=== PATIENT | female | born 1980 | race Two or more races ===

== ENCOUNTER 2018-04-29 18:58 | Inpatient (IN) | payer OTHER ==
[2018-04-29] MEDS ORDERED: ONDANSETRON 4 MG INJ IV (23:30)
[2018-04-29] MEDS ORDERED: ACETAMINOPHEN 325 MG TAB PO (23:30)
[2018-04-29 23:46] LABS: ADD UMIC YES; UR ASCORBIC ACID NEGATIVE (NEGATIVE); UR BACTERIA FEW /HPF (NONE SEEN); UR BILIRUBIN (Dip) NEGATIVE (NEGATIVE); UR BLOOD (Dip) NEGATIVE (NEGATIVE); UR CLARITY SLIGHTLY CLOUDY (CLEAR); UR COLOR YELLOW (YELLOW); UR GLUCOSE (Dip) NEGATIVE (NEGATIVE); UR KETONES (Dip) NEGATIVE (NEGATIVE); UR LEUKOCYTE ESTERASE (Dip) TRACE Leu/ul (NEGATIVE); UR NITRITE (Dip) NEGATIVE (NEGATIVE); UR RBC 2 /HPF (0-5); UR SPECIFIC GRAVITY (Dip) 1.011 (1.003-1.030); UR SQUAMOUS EPITHELIAL CELL FEW /HPF (FEW); UR TOTAL PROTEIN (Dip) NEGATIVE (NEGATIVE); UR UROBILINOGEN (Dip) NEGATIVE (NEGATIVE); UR WBC 0 /HPF (0-5)
[2018-04-30] MEDS: LACTATED RINGER'S 1,000 ML IV ×3 (00:34→22:35)
[2018-04-30] MEDS: MAGNESIUM SULFATE 4 GM/100 ML 100 ML IV (00:50)
[2018-04-30] MEDS: BETAMET NA PHOS/AC(6 MG/ML) 5ML INJ IM (00:51)
[2018-04-30 00:59] LABS: ADD MAN DIFF? NO
[2018-04-30 01:02] LABS: BASOPHILS % 0.6 % (0.0-2.0); EOSINOPHILS # 0.1 10^3/ul (0.0-0.5); EOSINOPHILS % 1.6 % (0.0-7.0); HEMATOCRIT 35.8 % (37.0-47.0); LYMPHOCYTES # 1.5 10^3/ul (0.8-2.9); LYMPHOCYTES % 31.1 % (15.0-51.0); MEAN CORPUSCULAR HGB CONC 33.5 g/dl (32.0-37.0); MEAN CORPUSCULAR VOLUME 92.5 fl (82.0-101.0); MEAN PLATELET VOLUME 11.8 fl (7.4-10.4); MONOCYTE # 0.4 10^3/ul (0.3-0.9); MONOCYTES % 7.5 % (0.0-11.0); NEUTROPHIL # 2.9 10^3/ul (1.6-7.5); NEUTROPHILS % 58.8 % (39.0-77.0); PLATELET COUNT 119 10^3/UL (140-415); RED BLOOD COUNT 3.87 10^6/ul (4.20-5.40); RED CELL DISTRIBUTION WIDTH 13.3 % (11.5-14.5)
[2018-04-30 01:18] LABS: ALANINE AMINOTRANSFERASE 49 IU/L (13-69); ALBUMIN 2.8 g/dl (3.3-4.9); ALKALINE PHOSPHATASE 393 IU/L (42-121); ANION GAP 10 (8-16); ASPARTATE AMINO TRANSFERASE 51 IU/L (15-46); BILIRUBIN,INDIRECT 0.2 mg/dl (0-1.1); BILIRUBIN,TOTAL 0.2 mg/dl (0.2-1.3); BLOOD UREA NITROGEN 12 mg/dl (7-20); CALCIUM 8.6 mg/dl (8.4-10.2); CARBON DIOXIDE 20 mmol/L (21-31); CHLORIDE 110 mmol/L (97-110); CREATININE 0.56 mg/dl (0.44-1.00); GLUCOSE 67 mg/dl (70-220); POTASSIUM 3.7 mmol/L (3.5-5.1); SODIUM 136 mmol/L (135-144); TOTAL PROTEIN 6.3 g/dl (6.1-8.1)
[2018-04-30] MEDS: MAGNESIUM SULFATE 20 GM/500 ML 500 ML IV ×2 (01:20→11:40)
[2018-04-30 01:24] LABS: PROTIME 11.1 Sec (11.9-14.9); PT RATIO 0.9
[2018-04-30 01:25] LABS: PARTIAL THROMBOPLASTIN TIME 28.5 Sec (25.0-35.0)
[2018-04-30] MEDS: AMPICILLIN 2 GM/NS (PMX) 100 ML IVPB (02:35)
[2018-04-30] MEDS: AMPICILLIN 1 GM/NS (PMX) 50 ML IVPB ×5 (06:51→23:14)
[2018-04-30 07:05] LABS: ADD MAN DIFF? NO
[2018-04-30 07:15] LABS: WHITE BLOOD COUNT 4.1 10^3/ul (4.8-10.8)
[2018-04-30 07:15] LABS: BASOPHILS % 0.2 % (0.0-2.0); EOSINOPHILS % 0.2 % (0.0-7.0); HEMOGLOBIN 11.8 g/dl (12.0-16.0); LYMPHOCYTES % 23.1 % (15.0-51.0); MEAN CORPUSCULAR HEMOGLOBIN 29.9 pg (29.0-33.0); MEAN CORPUSCULAR HGB CONC 32.8 g/dl (32.0-37.0); MEAN CORPUSCULAR VOLUME 91.4 fl (82.0-101.0); MONOCYTE # 0.1 10^3/ul (0.3-0.9); MONOCYTES % 2.9 % (0.0-11.0); NEUTROPHILS % 72.6 % (39.0-77.0); PLATELET COUNT 124 10^3/UL (140-415); RED BLOOD COUNT 3.94 10^6/ul (4.20-5.40); RED CELL DISTRIBUTION WIDTH 13.3 % (11.5-14.5)
[2018-04-30 07:59] LABS: ALANINE AMINOTRANSFERASE 46 IU/L (13-69); ALBUMIN 2.8 g/dl (3.3-4.9); ALKALINE PHOSPHATASE 436 IU/L (42-121); ASPARTATE AMINO TRANSFERASE 52 IU/L (15-46); BILIRUBIN,INDIRECT 0.2 mg/dl (0-1.1); BILIRUBIN,TOTAL 0.2 mg/dl (0.2-1.3); BLOOD UREA NITROGEN 10 mg/dl (7-20); CALCIUM 7.6 mg/dl (8.4-10.2); CARBON DIOXIDE 20 mmol/L (21-31); CREATININE 0.62 mg/dl (0.44-1.00); GLUCOSE 125 mg/dl (70-220); TOTAL PROTEIN 6.3 g/dl (6.1-8.1)
[2018-04-30 08:10] LABS: ANION GAP 11 (8-16); CHLORIDE 109 mmol/L (97-110); POTASSIUM 3.9 mmol/L (3.5-5.1); SODIUM 136 mmol/L (135-144)
[2018-04-30 08:11] LABS: MAGNESIUM 6.3 mg/dl (1.7-2.5)
[2018-04-30] MEDS: PRENATAL VITAMIN PO (09:41)
[2018-04-30] MEDS: FERROUS SULFATE (EC) 325 MG TAB PO (09:41)
[2018-04-30 12:48] LABS: MAGNESIUM 7.4 mg/dl (1.7-2.5)
[2018-04-30 18:37] LABS: RAPID PLASMA REAGIN NONREACTIVE (NR)
[2018-04-30 18:46] LABS: MAGNESIUM 6.2 mg/dl (1.7-2.5)
[2018-04-30 23:53] LABS: MAGNESIUM 5.9 mg/dl (1.7-2.5)
[2018-05-01 00:19] LABS: HEPATITIS B SURFACE ANTIGEN NEGATIVE (NEGATIVE)
[2018-05-01] MEDS: BETAMET NA PHOS/AC(6 MG/ML) 5ML INJ IM (01:39)
[2018-05-01] MEDS: AMPICILLIN 1 GM/NS (PMX) 50 ML IVPB ×3 (02:39→10:27)
[2018-05-01] MEDS: MAGNESIUM SULFATE 20 GM/500 ML 500 ML IV (02:41)
[2018-05-01 07:36] LABS: MAGNESIUM 7.4 mg/dl (1.7-2.5)
[2018-05-01] MEDS: FERROUS SULFATE (EC) 325 MG TAB PO (10:26)
[2018-05-01] MEDS: PRENATAL VITAMIN PO (10:26)
[2018-05-01 12:53] LABS: MAGNESIUM 5.9 mg/dl (1.7-2.5)
[2018-05-02] MEDS: LACTATED RINGER'S 1,000 ML IV ×3 (06:22→23:16)
[2018-05-02] MEDS: PRENATAL VITAMIN PO (08:56)
[2018-05-02] MEDS: FERROUS SULFATE (EC) 325 MG TAB PO (08:56)
[2018-05-02 20:56] LABS: ADD MAN DIFF? NO
[2018-05-02 20:59] LABS: ABNORMAL IP MESSAGE 1; BASOPHILS % 0.3 % (0.0-2.0); EOSINOPHILS % 0.3 % (0.0-7.0); HEMATOCRIT 32.2 % (37.0-47.0); HEMOGLOBIN 10.2 g/dl (12.0-16.0); LYMPHOCYTES # 1.3 10^3/ul (0.8-2.9); LYMPHOCYTES % 17.6 % (15.0-51.0); MEAN CORPUSCULAR HEMOGLOBIN 30.3 pg (29.0-33.0); MEAN CORPUSCULAR HGB CONC 31.7 g/dl (32.0-37.0); MEAN CORPUSCULAR VOLUME 95.5 fl (82.0-101.0); MEAN PLATELET VOLUME 12.4 fl (7.4-10.4); MONOCYTE # 0.8 10^3/ul (0.3-0.9); MONOCYTES % 10.2 % (0.0-11.0); NEUTROPHIL # 5.3 10^3/ul (1.6-7.5); NEUTROPHILS % 69.8 % (39.0-77.0); NUCLEATED RED BLOOD CELLS # 0.1 10^3/ul (0.0-0.0); NUCLEATED RED BLOOD CELLS% 0.8 /100WBC (0.0-0.0); PLATELET COUNT 96 10^3/UL (140-415); RED BLOOD COUNT 3.37 10^6/ul (4.20-5.40)
[2018-05-02 20:59] LABS: WHITE BLOOD COUNT 7.6 10^3/ul (4.8-10.8)
[2018-05-02 21:11] LABS: POSITIVE DIFF @See below
[2018-05-02 21:24] LABS: ALANINE AMINOTRANSFERASE 63 IU/L (13-69); ALBUMIN 2.5 g/dl (3.3-4.9); ALBUMIN/GLOBULIN RATIO 0.78; ALKALINE PHOSPHATASE 338 IU/L (42-121); ANION GAP 10 (8-16); ASPARTATE AMINO TRANSFERASE 69 IU/L (15-46); BILIRUBIN,INDIRECT 0.1 mg/dl (0-1.1); BILIRUBIN,TOTAL 0.1 mg/dl (0.2-1.3); BLOOD UREA NITROGEN 13 mg/dl (7-20); CALCIUM 8.2 mg/dl (8.4-10.2); CARBON DIOXIDE 25 mmol/L (21-31); CHLORIDE 111 mmol/L (97-110); CREATININE 0.73 mg/dl (0.44-1.00); GLUCOSE 90 mg/dl (70-220); SODIUM 142 mmol/L (135-144); TOTAL PROTEIN 5.7 g/dl (6.1-8.1)
[2018-05-02] MEDS: ALBUTEROL 0.083% (NEB) 2.5 MG/3 ML AMP HHN (21:32)
[2018-05-02 21:37] LABS: INR 0.79; PT RATIO 0.9
[2018-05-02 21:38] LABS: PARTIAL THROMBOPLASTIN TIME 25.4 Sec (25.0-35.0)
[2018-05-02 21:45] LABS: BAND NEUTROPHILS #M 0.2 10^3/ul (0.0-0.6); BAND NEUTROPHILS % (M) 3 % (0-4); LYMPHOCYTES #M 0.9 10^3/ul (0.8-2.9); LYMPHOCYTES % (M) 13 % (15-51); MONOCYTE #M 0.7 10^3/ul (0.3-0.9); MONOCYTES % (M) 10 % (0-11); PLATELET ESTIMATE DECREASED; REACTIVE LYMPHOCYTES #M 0.2 10^3/ul (0.0-0.0); REACTIVE LYMPHOCYTES% (M) 3 % (0-0); SEG NEUT #M 5.3 10^3/ul (1.6-7.5); SEGMENTED NEUTROPHILS (M) % 70 % (39-77); SMUDGE%M 7 % (0-0)
[2018-05-03] MEDS: ALBUTEROL 0.083% (NEB) 2.5 MG/3 ML AMP HHN ×5 (04:15→23:20)
[2018-05-03] MEDS: LACTATED RINGER'S 1,000 ML IV ×3 (07:25→23:37)
[2018-05-03] MEDS: PRENATAL VITAMIN PO (09:22)
[2018-05-03] MEDS: FERROUS SULFATE (EC) 325 MG TAB PO (09:22)
[2018-05-03] MEDS: AL HYDROX/MG HYDROX/SIMETH 30 ML CUP PO (23:36)
[2018-05-04] MEDS: LACTATED RINGER'S 1,000 ML IV ×2 (08:17→22:50)
[2018-05-04] MEDS: FERROUS SULFATE (EC) 325 MG TAB PO (08:21)
[2018-05-04] MEDS: AL HYDROX/MG HYDROX/SIMETH 30 ML CUP PO (08:21)
[2018-05-04] MEDS: PRENATAL VITAMIN PO (08:21)
[2018-05-04] MEDS: ALBUTEROL 0.083% (NEB) 2.5 MG/3 ML AMP HHN ×2 (11:02→15:07)
[2018-05-04 15:39] LABS: ADD MAN DIFF? NO
[2018-05-04 15:42] LABS: ABNORMAL IP MESSAGE 1; BASOPHILS % 0.3 % (0.0-2.0); EOSINOPHILS % 0.4 % (0.0-7.0); HEMATOCRIT 32.5 % (37.0-47.0); HEMOGLOBIN 10.5 g/dl (12.0-16.0); LYMPHOCYTES # 1.4 10^3/ul (0.8-2.9); LYMPHOCYTES % 21.1 % (15.0-51.0); MEAN CORPUSCULAR HEMOGLOBIN 30.3 pg (29.0-33.0); MEAN CORPUSCULAR HGB CONC 32.3 g/dl (32.0-37.0); MEAN CORPUSCULAR VOLUME 93.9 fl (82.0-101.0); MEAN PLATELET VOLUME 12.8 fl (7.4-10.4); MONOCYTE # 0.7 10^3/ul (0.3-0.9); MONOCYTES % 10.2 % (0.0-11.0); NEUTROPHIL # 4.3 10^3/ul (1.6-7.5); NUCLEATED RED BLOOD CELLS # 0.2 10^3/ul (0.0-0.0); NUCLEATED RED BLOOD CELLS% 3.1 /100WBC (0.0-0.0); PLATELET COUNT 88 10^3/UL (140-415); RED BLOOD COUNT 3.46 10^6/ul (4.20-5.40)
[2018-05-04 15:42] LABS: WHITE BLOOD COUNT 6.8 10^3/ul (4.8-10.8)
[2018-05-04 15:50] LABS: POSITIVE DIFF @See below
[2018-05-04 16:00] LABS: PT RATIO 0.9
[2018-05-04 16:02] LABS: ALANINE AMINOTRANSFERASE 184 IU/L (13-69); ALBUMIN 2.5 g/dl (3.3-4.9); ALBUMIN/GLOBULIN RATIO 0.75; ALKALINE PHOSPHATASE 367 IU/L (42-121); ANION GAP 11 (8-16); ASPARTATE AMINO TRANSFERASE 202 IU/L (15-46); BILIRUBIN,INDIRECT 0.4 mg/dl (0-1.1); BILIRUBIN,TOTAL 0.4 mg/dl (0.2-1.3); BLOOD UREA NITROGEN 7 mg/dl (7-20); CALCIUM 8.8 mg/dl (8.4-10.2); CARBON DIOXIDE 21 mmol/L (21-31); CHLORIDE 112 mmol/L (97-110); CREATININE 0.66 mg/dl (0.44-1.00); GLUCOSE 74 mg/dl (70-220); SODIUM 140 mmol/L (135-144); TOTAL PROTEIN 5.8 g/dl (6.1-8.1); URIC ACID 6.7 mg/dl (3.1-7.9)
[2018-05-04 16:15] LABS: INR 0.82; PROTIME 11.4 Sec (11.9-14.9)
[2018-05-04 16:16] LABS: PARTIAL THROMBOPLASTIN TIME 28.7 Sec (25.0-35.0)
[2018-05-04] MEDS ORDERED: OXYTOCIN 30 UNITS/LR 500 ML IV ×2 (16:30→23:00)
[2018-05-04] MEDS ORDERED: METHYLERGONOVINE 0.2 MG INJ IM ×2 (16:30→23:00)
[2018-05-04] MEDS ORDERED: CARBOPROST 250 MCG INJ IM ×2 (16:30→23:00)
[2018-05-04] MEDS ORDERED: MISOPROSTOL 200 MCG TAB PR ×2 (16:30→23:00)
[2018-05-04] MEDS: ONDANSETRON 4 MG INJ IV (16:40)
[2018-05-04] MEDS: CITRIC ACID/NA CITRATE 30 ML CUP PO (16:40)
[2018-05-04] MEDS ORDERED: OXYTOCIN 10 UNIT INJ (17:10)
[2018-05-04] MEDS ORDERED: PHENYLephrine (100 MCG/ML) 5ML SYG (17:10)
[2018-05-04] MEDS ORDERED: morphine SULFATE/PF (10 MG/10 ML) INJ (17:10)
[2018-05-04] MEDS ORDERED: BUPIVACAINE 0.75%/DEXT (SPINAL) 2 ML INJ (17:11)
[2018-05-04] MEDS ORDERED: FENTAnyl 50 MCG/ML VIAL (17:46)
[2018-05-04] MEDS ORDERED: METOCLOPRAMIDE 10 MG INJ (17:46)
[2018-05-04] MEDS ORDERED: KETOROLAC 30 MG INJ (17:46)
[2018-05-04] MEDS ORDERED: MEPERIDINE 50 MG INJ (17:57)
[2018-05-04] MEDS ORDERED: HYDROCODONE/APAP (5/325) TAB PO (18:00)
[2018-05-04] MEDS ORDERED: ACETAMINOPHEN 500 MG TAB PO (18:00)
[2018-05-04] MEDS ORDERED: HYDROmorphONE 0.5 MG/0.5 ML SYG IV (18:00)
[2018-05-04] MEDS ORDERED: ONDANSETRON 4 MG INJ IV ×2 (18:00→23:00)
[2018-05-04] MEDS ORDERED: NALOXONE (0.4 MG/ML) INJ IV (18:00)
[2018-05-04] MEDS ORDERED: KETOROLAC 30 MG INJ IV (18:00)
[2018-05-04] MEDS ORDERED: DIPHENHYDRAMINE 50 MG INJ IV ×2 (18:00→23:00)
[2018-05-04] MEDS ORDERED: NALBUPHINE HCL (10 MG/1 ML) INJ IV (18:00)
[2018-05-04] MEDS ORDERED: morphine 2 MG INJ IV ×2 (18:00)
[2018-05-04] MEDS ORDERED: DEXAMETHASONE 4 MG/ML 1 ML INJ (18:01)
[2018-05-04] MEDS ORDERED: LABETALOL HCL 20MG INJ ×2 (18:04→18:59)
[2018-05-04] MEDS: CEFAZOLIN 2 GM/50 ML (PMX) 50 ML IV (19:38)
[2018-05-04] MEDS: OXYTOCIN 30 UNITS/LR 500 ML IV (20:17)
[2018-05-04] MEDS ORDERED: OXYCODONE/ACETAMINOPHEN (5/325) TAB PO (23:00)
[2018-05-04] MEDS ORDERED: ZOLPIDEM 5 MG TAB PO (23:00)
[2018-05-04] MEDS ORDERED: LANOLIN 7 GM TUBE TOP (23:00)
[2018-05-04] MEDS: IBUPROFEN 600 MG TAB PO (23:05)
[2018-05-05] MEDS: OXYTOCIN 30 UNITS/LR 500 ML IV (00:36)
[2018-05-05] MEDS: LACTATED RINGER'S 1,000 ML IV ×3 (04:45→22:50)
[2018-05-05 08:05] LABS: ADD MAN DIFF? NO
[2018-05-05 08:11] LABS: WHITE BLOOD COUNT 16.1 10^3/ul (4.8-10.8)
[2018-05-05 08:11] LABS: ABNORMAL IP MESSAGE 1; BASOPHILS % 0.2 % (0.0-2.0); EOSINOPHILS % 0.1 % (0.0-7.0); HEMATOCRIT 25.8 % (37.0-47.0); HEMOGLOBIN 8.2 g/dl (12.0-16.0); LYMPHOCYTES # 1.7 10^3/ul (0.8-2.9); LYMPHOCYTES % 10.8 % (15.0-51.0); MEAN CORPUSCULAR HEMOGLOBIN 30.4 pg (29.0-33.0); MEAN CORPUSCULAR HGB CONC 31.8 g/dl (32.0-37.0); MEAN CORPUSCULAR VOLUME 95.6 fl (82.0-101.0); MEAN PLATELET VOLUME 13.4 fl (7.4-10.4); MONOCYTE # 1.2 10^3/ul (0.3-0.9); MONOCYTES % 7.3 % (0.0-11.0); NEUTROPHILS % 80.6 % (39.0-77.0); NUCLEATED RED BLOOD CELLS # 0.2 10^3/ul (0.0-0.0); NUCLEATED RED BLOOD CELLS% 1.1 /100WBC (0.0-0.0); PLATELET COUNT 94 10^3/UL (140-415); RED CELL DISTRIBUTION WIDTH 13.9 % (11.5-14.5)
[2018-05-05] MEDS: SENNA/DOCUSATE NA (8.6MG/50MG) TAB PO ×2 (08:28→20:40)
[2018-05-05 08:33] LABS: POSITIVE DIFF @See below
[2018-05-05] MEDS: HYDROmorphONE 0.5 MG/0.5 ML SYG IV ×3 (09:46→14:54)
[2018-05-05] MEDS: IBUPROFEN 600 MG TAB PO ×2 (17:38→17:43)
[2018-05-05] MEDS: OXYCODONE/ACETAMINOPHEN (5/325) TAB PO (17:43)
[2018-05-05] MEDS: HYDROCODONE/APAP (5/325) TAB PO ×2 (20:40→23:11)
[2018-05-05] MEDS: MAGNESIUM HYDROXIDE 30ML CUP PO (20:40)
[2018-05-06] MEDS: IBUPROFEN 600 MG TAB PO ×5 (06:20→23:57)
[2018-05-06] MEDS: HYDROCODONE/APAP (5/325) TAB PO ×4 (06:21→22:00)
[2018-05-06] MEDS: LACTATED RINGER'S 1,000 ML IV ×3 (06:50→22:50)
[2018-05-06 08:58] LABS: ADD MAN DIFF? NO
[2018-05-06 09:06] LABS: WHITE BLOOD COUNT 11.5 10^3/ul (4.8-10.8)
[2018-05-06 09:06] LABS: BASOPHILS % 0.1 % (0.0-2.0); EOSINOPHILS # 0.1 10^3/ul (0.0-0.5); EOSINOPHILS % 1.1 % (0.0-7.0); HEMATOCRIT 29.8 % (37.0-47.0); HEMOGLOBIN 9.3 g/dl (12.0-16.0); LYMPHOCYTES # 1.7 10^3/ul (0.8-2.9); LYMPHOCYTES % 14.5 % (15.0-51.0); MEAN CORPUSCULAR HEMOGLOBIN 30.1 pg (29.0-33.0); MEAN CORPUSCULAR HGB CONC 31.2 g/dl (32.0-37.0); MEAN CORPUSCULAR VOLUME 96.4 fl (82.0-101.0); MEAN PLATELET VOLUME 12.6 fl (7.4-10.4); MONOCYTE # 0.9 10^3/ul (0.3-0.9); MONOCYTES % 7.5 % (0.0-11.0); NEUTROPHIL # 8.8 10^3/ul (1.6-7.5); NEUTROPHILS % 75.9 % (39.0-77.0); NUCLEATED RED BLOOD CELLS% 0.2 /100WBC (0.0-0.0); PLATELET COUNT 133 10^3/UL (140-415); RED BLOOD COUNT 3.09 10^6/ul (4.20-5.40); RED CELL DISTRIBUTION WIDTH 14.2 % (11.5-14.5)
[2018-05-06] MEDS: SENNA/DOCUSATE NA (8.6MG/50MG) TAB PO ×2 (09:21→21:40)
[2018-05-06 09:27] LABS: ALANINE AMINOTRANSFERASE 194 IU/L (13-69); ALBUMIN 2.2 g/dl (3.3-4.9); ALKALINE PHOSPHATASE 251 IU/L (42-121); ANION GAP 9 (8-16); ASPARTATE AMINO TRANSFERASE 139 IU/L (15-46); BILIRUBIN,INDIRECT 0.2 mg/dl (0-1.1); BILIRUBIN,TOTAL 0.2 mg/dl (0.2-1.3); BLOOD UREA NITROGEN 16 mg/dl (7-20); CALCIUM 7.9 mg/dl (8.4-10.2); CARBON DIOXIDE 29 mmol/L (21-31); CHLORIDE 103 mmol/L (97-110); CREATININE 0.85 mg/dl (0.44-1.00); GLUCOSE 80 mg/dl (70-220); POTASSIUM 4.6 mmol/L (3.5-5.1); SODIUM 136 mmol/L (135-144); TOTAL PROTEIN 5.3 g/dl (6.1-8.1)
[2018-05-06] MEDS: MAGNESIUM HYDROXIDE 30ML CUP PO (12:11)
[2018-05-07] MEDS: HYDROCODONE/APAP (5/325) TAB PO ×5 (02:24→21:30)
[2018-05-07] MEDS: IBUPROFEN 600 MG TAB PO ×3 (05:56→18:30)
[2018-05-07] MEDS: LACTATED RINGER'S 1,000 ML IV (06:50)
[2018-05-07] MEDS: SENNA/DOCUSATE NA (8.6MG/50MG) TAB PO ×2 (09:00→21:30)
[2018-05-07] MEDS: DIPHTH/TET/ACEL PERTUSS (ADULT) 0.5 ML VIAL IM* (13:25)
[2018-05-08] MEDS: IBUPROFEN 600 MG TAB PO ×4 (00:10→17:38)
[2018-05-08] MEDS: HYDROCODONE/APAP (5/325) TAB PO ×2 (06:28→14:10)
[2018-05-08 08:40] LABS: ADD MAN DIFF? NO
[2018-05-08 08:52] LABS: WHITE BLOOD COUNT 7.2 10^3/ul (4.8-10.8)
[2018-05-08 08:52] LABS: BASOPHILS % 0.3 % (0.0-2.0); EOSINOPHILS # 0.2 10^3/ul (0.0-0.5); EOSINOPHILS % 2.2 % (0.0-7.0); HEMATOCRIT 28.2 % (37.0-47.0); HEMOGLOBIN 8.9 g/dl (12.0-16.0); LYMPHOCYTES # 1.7 10^3/ul (0.8-2.9); LYMPHOCYTES % 22.8 % (15.0-51.0); MEAN CORPUSCULAR HEMOGLOBIN 30.6 pg (29.0-33.0); MEAN CORPUSCULAR HGB CONC 31.6 g/dl (32.0-37.0); MEAN CORPUSCULAR VOLUME 96.9 fl (82.0-101.0); MEAN PLATELET VOLUME 11.7 fl (7.4-10.4); MONOCYTE # 0.5 10^3/ul (0.3-0.9); MONOCYTES % 7.5 % (0.0-11.0); NEUTROPHIL # 4.8 10^3/ul (1.6-7.5); NEUTROPHILS % 66.5 % (39.0-77.0); PLATELET COUNT 172 10^3/UL (140-415); RED BLOOD COUNT 2.91 10^6/ul (4.20-5.40); RED CELL DISTRIBUTION WIDTH 14.1 % (11.5-14.5)
[2018-05-08 09:31] LABS: ALANINE AMINOTRANSFERASE 130 IU/L (13-69); ALBUMIN 2.3 g/dl (3.3-4.9); ALBUMIN/GLOBULIN RATIO 0.74; ALKALINE PHOSPHATASE 252 IU/L (42-121); ANION GAP 10 (8-16); ASPARTATE AMINO TRANSFERASE 99 IU/L (15-46); BILIRUBIN,INDIRECT 0.1 mg/dl (0-1.1); BILIRUBIN,TOTAL 0.1 mg/dl (0.2-1.3); BLOOD UREA NITROGEN 10 mg/dl (7-20); CALCIUM 8.3 mg/dl (8.4-10.2); CARBON DIOXIDE 25 mmol/L (21-31); CHLORIDE 108 mmol/L (97-110); CREATININE 0.66 mg/dl (0.44-1.00); GLUCOSE 96 mg/dl (70-220); POTASSIUM 4.2 mmol/L (3.5-5.1); SODIUM 139 mmol/L (135-144); TOTAL PROTEIN 5.4 g/dl (6.1-8.1)
[2018-05-08] MEDS: SENNA/DOCUSATE NA (8.6MG/50MG) TAB PO (10:05)
== END 2018-05-08 18:50 | disposition home or self-care (01) | DRG 765 ==
LOC: OBT 18:58 → L-D 19:00 → OBT 23:10 → L-D 05-04 17:06 → PP1 05-04 22:30
PROC: 10D00Z1 Extraction of Products of Conception, Low, Open Approach (ICD-10-PCS; principal; 2018-05-04)
PROC: 0UB90ZZ Excision of Uterus, Open Approach (ICD-10-PCS; 2018-05-04)
DX: O30.003 Twin pregnancy, unspecified number of placenta and unspecified number of amniotic sacs, third trimester (principal); O60.14X0 Preterm labor third trimester with preterm delivery third trimester, not applicable or unspecified; O99.12 Other diseases of the blood and blood-forming organs and certain disorders involving the immune mechanism complicating childbirth; O90.1 Disruption of perineal obstetric wound; Z37.2 Twins, both liveborn; O34.211 Maternal care for low transverse scar from previous cesarean delivery; O13.4 Gestational [pregnancy-induced] hypertension without significant proteinuria, complicating childbirth; Z3A.34 34 weeks gestation of pregnancy; Z37.0 Single live birth; Z30.2 Encounter for sterilization
CPT/HCPCS: 71045; 76815; 76817; 76818; 80053; 81001; 83735; 84560; 85025; 85384; 85610; 85730; 86592; 86850; 86900; 86901; 86920; 87086; 87340; 88302; 88307; 90715; 93005; 93970; 94640; 94664; 99464